=== PATIENT | female | born 1980 | race Caucasian/White ===

== ENCOUNTER 2016-12-08 13:39 | Emergency (ER) | payer SELFPAY ==
--- NOTE | 2016-12-09 01:04 | ER ---
Date of Service: 12/08/2016 SUBJECTIVE: Felicia presents to the emergency room with complaints of dental pain. She has a history of poor dentition and has experienced discomfort in the right lower premolar. She states that the tooth cracked several weeks ago and states the discomfort has been present for approximately 4 days. She stated that she did contact with her dentist, but she could not get in to see them until Monday to have that tooth taken care of. PAST MEDICAL HISTORY: None. MEDICATIONS: None. ALLERGIES: Morphine. REVIEW OF SYSTEMS: No fever, chills, chest pain, unilateral neck swelling or other worrisome signs or symptoms. PHYSICAL EXAMINATION: General: This is a 36-year-old female patient who is in moderate to severe amount of distress. She is tearful in the exam room. Vital Signs: Blood pressure is 176/98, heart rate is 96, temperature is 36.2, respiratory rate is 20. Skin: Warm, pink, and dry. HEENT: She does have evidence of numerous dental caries in many of her teeth. The tooth in question that is causing discomfort is a left lower premolar that has a crack in the posterior aspect of the tooth. She does have what appears to be filling and exposed tooth pull. No obvious unilateral swelling noted. Remainder of her physical examination is within normal limits. ASSESSMENT: Dental fracture/caries. PLAN: The patient will be discharged. I did start her on Augmentin 875 mg 1 twice daily for 10 days. Also, did start her on a short course of [place] 5/325 with instructions to take 1 every 4 to 6 hours as needed for pain. I would like her to follow up with her dentist as soon as possible. Return to the emergency room. All questions were answered. MWK: 12/09/2016 00:06:07 MODL: 12/09/2016 00:58:35 /[id number]
== END 2016-12-08 14:10 | disposition home or self-care (01) ==
LOC: VM.ED 13:39
CPT/HCPCS: 99282; 99283-GF